=== PATIENT | female | born 1975 | race Caucasian/White ===

== ENCOUNTER → 2018-05-29 13:20 | Outpatient (CLI) | payer OTHER, SELFPAY ==
--- NOTE | 2018-05-29 13:24 | DI.RAD.S_ITS ---
PROCEDURE: XR LUMBAR SPINE MIN 4V INDICATIONS: POST LAMINECTOMY W/ RT L5 RADICULAR TECHNIQUE: 5 views of the lumbar spine were acquired. COMPARISON: None. FINDINGS: Bones: No fracture or focal osseous destruction is seen. There is moderate to severe narrowing of the L4-L5 and L5-S1 disc spaces. Diffuse facet arthropathy. Postsurgical change related to right L5 laminotomy. Soft tissues: Overlying bowel gas pattern is normal. No suspicious soft tissue calcifications. Oblique images: No pars defects. IMPRESSION: Moderate to severe L4-L5 and L5-S1 disc degeneration. Diffuse facet arthropathy. Dictated by: Efrain Juarez M.D. on 05/29/2018 at 14:15 Approved by: Efrain Juarez M.D. on 05/29/2018 at 14:17
== END ==
PROVIDERS: PCP Family Medicine; Visit Provider Physical Medicine & Rehabilitation
DX: M51.16 Intervertebral disc disorders with radiculopathy, lumbar region (principal); M51.17 Intervertebral disc disorders with radiculopathy, lumbosacral region; M47.26 Other spondylosis with radiculopathy, lumbar region; M96.1 Postlaminectomy syndrome, not elsewhere classified
CPT/HCPCS: 72110

== ENCOUNTER → 2018-06-10 18:08 | Outpatient (CLI) | payer OTHER, SELFPAY ==
--- NOTE | 2018-06-10 18:17 | DI.MRI.S_ITS ---
PROCEDURE: MR LUMBAR SPINE WO CON INDICATIONS: RADICULOPATHY, LUMBOSACRAL REGION TECHNIQUE: Noncontrast sagittal T1 spin echo and T2 fast echo, sagittal STIR, axial T1 and T2 fast spin echo through the lumbar spine. In cases with scoliosis, additional coronal T2 fast spin echo may be performed. COMPARISON: [facility], MR, LUMBAR SPINE W&W/O CONTRAST, 07/29/2013, 8:55. [facility], CR, XR LUMBAR SPINE MIN 4V, 05/29/2018, 13:15. FINDINGS: Image quality: Excellent. Alignment and Curvature: There is mild grade 1 retrolisthesis of L4 on L5 and L5 on S1. Minimal focal kyphosis at L4-L5 is present. Bone Marrow: Marrow is of normal overall signal. No acute vertebral body compression fractures. There is mild reactive signal within the endplates adjacent to the L4-L5 and L5-S1 intervertebral discs, which is slightly increased. Right L4-L5 and L5-S1 hemilaminotomy has been performed. Spinal Cord: Conus medullaris terminates at the mid L1 level. Visualized cord demonstrates normal signal and size. Paraspinous Soft Tissues: No paravertebral masses. Circumaortic left renal vein. L1-L2: Normal appearance. L2-L3: Normal appearance. L3-L4: Mild bilateral facet hypertrophy. No significant canal, nor foraminal stenosis. No change. L4-L5: Moderate disc height loss and desiccation. Mild diffuse disc bulge with small superimposed broad-based left posterolateral protrusion. Mild bilateral facet hypertrophy. Mild canal stenosis. Mild bilateral foraminal stenosis. No change. L5-S1: Mild disc height loss and desiccation. Mild diffuse disc bulge. Mild bilateral facet hypertrophy. There is abutment of the right S1 nerve root within the lateral recess, as before. There is mild canal stenosis, and mild bilateral foraminal stenosis, as before. IMPRESSION: 1. Multilevel degenerative disc and facet disease. 2. Postsurgical sequelae at L4-L5 and L5-S1. 3. Mild multilevel canal and foraminal stenoses. 4. No change in abutment of the right S1 nerve root within the lateral recess at L5-S1. Recommend correlation with clinical symptoms to ascertain relevance of this finding. Dictated by: Dada Diamond M.D. on 06/11/2018 at 9:19 Approved by: Dada Diamond M.D. on 06/11/2018 at 9:25
== END ==
PROVIDERS: Family Provider Family Medicine; PCP Family Medicine; Visit Provider Physical Medicine & Rehabilitation
DX: M51.16 Intervertebral disc disorders with radiculopathy, lumbar region (principal); M51.17 Intervertebral disc disorders with radiculopathy, lumbosacral region; M48.061 Spinal stenosis, lumbar region without neurogenic claudication; M48.07 Spinal stenosis, lumbosacral region; M96.1 Postlaminectomy syndrome, not elsewhere classified
CPT/HCPCS: 72148

== ENCOUNTER 2018-08-19 13:33 | Outpatient (CLI) | payer OTHER, SELFPAY ==
[2018-08-19] VITALS (9 sets, daily range): BP systolic 112–153; BP diastolic 45–85; PULSE 66–79; RESP 16–20; TEMP 36.3; O2SAT 96–100
--- NOTE | 2018-08-19 13:35 | DI.RAD.S_ITS ---
PROCEDURE: PAIN L INTERLAMINAR/CAUDAL INJ INDICATIONS: RADICULOPATHY FINDINGS: Fluoroscopic spot filming was performed to verify placement of spinal needles at the L5-S1 level(s), as labeled on the films. Appropriate location(s) of the needle tip(s) was confirmed by injection of iodinated contrast. Dictated by: Efrain Juarez M.D. on 08/19/2018 at 15:44 Approved by: Efrain Juarez M.D. on 08/19/2018 at 15:45
[2018-08-19] MEDS: MIDAZOLAM 5 MG/5 ML VIAL IV (14:41)
[2018-08-19] MEDS: IOPAMIDOL 15 ML VIAL 3 ML INJ (14:46)
[2018-08-19] MEDS: DEXAMETHASONE 10 MG/ML VIAL 20 MG INJ (14:46)
[2018-08-19] MEDS: BUPIVACAINE 0.25% (PF) VIAL 2 ML INJ (14:46)
[2018-08-19] MEDS: methylPREDNISolone acetate 80 MG/ML VIAL INJ (14:46)
--- NOTE | 2018-08-19 14:52 | PC.NURSE ---
ASSISTING PT OFF TABLE AND TRANSPORTING IN WC TO POST PROC AREA IN STABLE CONDITION
--- NOTE | 2018-08-19 14:56 | P.PCN_ITS ---
Procedures Date/Time Date of procedure: 08/19/18 Time of procedure: 14:55 General Procedure description: PROVIDER: Niraj Denny DO Operative Note PREOP DIAGNOSIS 1. HNP WITH RADICULAR FEATURES, 2. MULTILEVEL CENTRAL STENOSIS, POST OP DIAGNOSIS 1. HNP WITH RADICULAR FEATURES, 2. MULTILEVEL CENTRAL STENOSIS, PROCEDURES 1. FLUORSCOPICALLY GUIDED CONTRAST CONTROLLED INTERLAMINAR EPIDURAL STEROID INJECTION - L5/S1 PHYSICIAN: Niraj Denny DO INDICATIONS Emily is referred by Dr. Watkins for treatment of Bilateral Foraminal Stenosis R>L LE symptoms. FINDINGS Multilevel Central Spinal Stenosis with Nerve Root Compression DESCRIPTION OF PROCEDURE Fluoroscopically guided, contrast-controlled L5/S1 translaminar epidural steroid injection. Following denial of allergy and review of potential side effects and complications, including, but not necessarily limited to, infection, allergic reaction, local tissue breakdown, temporary as well as permanent nerve injury, paralysis, stroke and possible , the patient indicated that the patient understood and agreed to proceed. An informed consent document was signed by the patient, witnessed by a nurse, and placed in the patient's chart. Additionally, other treatment options including modalities, medications, and physical therapy were reviewed with the patient. After review of previous anaesthesic history and IV conscious sedation the patient was deemed safe to proceed with todays procedure with IV conscious sedation as ASA class II designation. Safety time-out was performed to confirm patient ID, procedure to be performed and site of procedure. IV sedation was accomplished with a combination of 5mg of Versed and 50mcg of Fentanyl administered by the RN after DO order, titrated to patient comfort during the course of the procedure while the patient remained responsive to all verbal commands. In the prone position, following sterile prep and drape of the lumbar region, the L5/S1 translaminar space was identified fluoroscopically. The skin was anesthetized via a 25-gauge, 1.5-inch needle with 1% lidocaine solution. At this point, a 22-gauge short bevel spinal needle was atraumatically introduced and advanced under fluoroscopic guidance into the region of the L5/S1 translaminar space. Depth was confirmed on lateral view. Radiological data, including multiple fluoroscopic views of the lumbar spine, reveal a spinal needle at the L5/S1 translaminar space. Lateral views then show placement of the needle in the epidural space. Subsequent views show contrast material flowing superiorly and inferiorly in the epidural space. No vascular or intrathecal uptake is observed. At this point, using loss of resistance technique with saline and air, the epidural space was entered. This was confirmed following negative aspiration with injection of approximately 1.5 cc of Isovue 200, showing excellent epidural flow without vascular or intrathecal uptake. At this point, 1 cc of 1 % lidocaine solution combined with 3 cc or 20mg of dexamethasone and 80mg Depo medrol was injected without incident. The patent tolerated the procedure without signs of symptoms of complications prior to transfer to the recovery area for further monitoring. The patient was then transferred to the recovery area where they were observed for an appropriate period of time after the injection. The patient reported a VAS score of 6 prior to the procedure and a post-procedure VAS of 0. Total Fluoroscopy Time: 11.8 seconds Total Conscious Sedation Time: 24min POST OP INSTRUCTIONS The patient was provided a Pain Log to continue to record their response to the target-specific procedure prior to follow-up visit with their referring physician. Additionally, specific post-injection care instructions and a contact number to our office were provided if concerns arise regarding possible complications associated with the procedure are suspected. Niraj Denny, Complications: none
--- NOTE | 2018-08-19 15:16 | PC.NURSE ---
Pt returned via wheelchair from procedure. Able to move from w/c to chair on own with standby assist. Resumed monitoring from Shaunna DE LEON.
--- NOTE | 2018-08-19 15:26 | PC.NURSE ---
changed bp cuff from upper left arm to lower left arm and it decreased pain with each measurement and bp's decreased.
== END 2018-08-19 15:29 ==
LOC: RAD 13:34
PROVIDERS: PCP Family Medicine; Visit Provider Physical Medicine & Rehabilitation
DX: M51.17 Intervertebral disc disorders with radiculopathy, lumbosacral region (principal); M48.07 Spinal stenosis, lumbosacral region; M96.1 Postlaminectomy syndrome, not elsewhere classified
CPT/HCPCS: 62323; 99152; J1040; J1100; J2250

== ENCOUNTER 2018-10-06 08:13 | Outpatient (CLI) | payer OTHER, SELFPAY ==
[2018-10-06] VITALS (8 sets, daily range): BP systolic 114–125; BP diastolic 56–84; PULSE 65–83; RESP 16–18; TEMP 37.3; O2SAT 89–98
--- NOTE | 2018-10-06 08:16 | DI.RAD.S_ITS ---
PROCEDURE: PAIN L/S TRANSFORAMINAL INJECT INDICATIONS: Right footdrop status post laminectomy FINDINGS: Fluoroscopic spot filming was performed to verify placement of spinal needles at the L4-L5 level(s), as labeled on the films. Appropriate location(s) of the needle tip(s) was confirmed by injection of iodinated contrast. IMPRESSION: Fluoroscopy for pain management. Dictated by: Lupe Gaytan M.D. on 10/06/2018 at 11:22 Approved by: Lupe Gaytan M.D. on 10/06/2018 at 11:22
--- NOTE | 2018-10-06 09:29 | P.PCN_ITS ---
Procedures Date/Time Date of procedure: 10/06/18 Time of procedure: 09:26 General Procedure description: PREOP DIAGNOSIS 1. FORMAINAL STENOSIS WITH LE SYMPTOMS POST OP DIAGNOSIS 1. FORMAINAL STENOSIS WITH LE SYMPTOMS PROCEDURES 1. FLUOROSCOPICALLY GUIDED CONTRAST CONTROLLED TRANSFORAMINAL EPIDURAL STEROID INJECTION - RIGHT L4/5 TFESI PHYSICIAN: Niraj Denny DO INDICATIONS: Emily is referred by for treatment of Foraminal Stenosis with Right LE Symptoms FINDINGS Foraminal Nerve Root Compression secondary to disc disease and facet hypertrophy DESCRIPTION OF PROCEDURE: Following denial of allergy and review of potential side effects and complications, including, but not necessarily limited to, infection, allergic reaction, local tissue breakdown, stroke, temporary or permanent nerve injury, paralysis, and possible , the patient indicated that the patient understood and agreed to proceed. An informed consent document was signed by the patient, witnessed by a nurse, and placed in the patient's chart. Additionally, other treatment options including medications, modalities, and physical therapy were reviewed with the patient. After review of previous anaesthesic history and IV conscious sedation the patient was deemed safe to proceed with todays procedure with IV conscious sedation as ASA class II designation. Safety time-out was performed to confirm patient ID, procedure to be performed and site of procedure. IV sedation was accomplished with a combination of 3mg of Versed and 50mcg of Fentanyl was administered by the RN after DO order, titrated to patient comfort during the course of the procedure while the patient remained responsive to all verbal commands In the prone position following sterile prep and drape of the lumbar region, the Right L4/5 posterior neuroforamen was identified fluoroscopically. The skin was anesthetized via a 25-gauge 1.5-inch needle with 1% lidocaine solution. At this point, a 22-gauge 5-inch spinal needle was atraumatically introduced and advance d under fluoroscopic guidance through the posterior Right L4/5 neuroforamen to approximately the anterior aspect of the canal. Depth was confirmed on lateral view. Following negative aspiration, injection of approximately 1.5 cc of Isovue 200 under live fluoroscopy in the AP view confirmed excellent flow along the nerve root, into the epidural space without vascular or intrathecal uptake observed Radiological data, including multiple fluoroscopic views of the lumbosacral spine, reveal a spinal needle at the right L4/5 posterior neuroforamen. Subsequent views show flow of contrast material flowing superiorly and inferiorly along the nerve root confirming epidural flow. Subsequently, a test dose of 1.5 cc of 1% lidocaine solution was administered and patient was observed for two minutes for signs or symptoms of complications, including abdominal pain, shortness of breath, bilateral upper or lower extremity weakness, nausea and vomiting, prior to steroid injection. At this point, a total of 2cc or 20mg of dexamethasone was injected without incident. The procedure tolerated the procedure well without signs or symptoms of complications prior to transfer to the recovery area continued monitoring without incident.The patient was then transferred to the recovery area where they were observed for an appropriate time after the injection. The patient reported a VAS score of 7 prior to the procedure and a post- procedure VAS of 0. Total Fluoroscopy Time: 20.9 seconds Total Conscious Sedation Time: 24min POST OP INSTRUCTIONS The patient was provided a Pain Log to continue to record their response to the target-specific procedure prior to follow-up visit with their referring physician. Additionally, specific post-injection care instructions and a contact number to our office were provided if concerns arise regarding possible complications associated with the procedure are suspected. Niraj Denny DO Complications: none
[2018-10-06] MEDS: MIDAZOLAM 5 MG/5 ML VIAL IV (09:34)
[2018-10-06] MEDS: BUPIVACAINE 0.25% (PF) VIAL 2 ML INJ (09:42)
[2018-10-06] MEDS: DEXAMETHASONE 10 MG/ML VIAL 20 MG INJ (09:43)
[2018-10-06] MEDS: IOPAMIDOL 15 ML VIAL 3 ML INJ (09:43)
--- NOTE | 2018-10-06 09:47 | PC.NURSE ---
ASSISTING PT OFF Table and tranpsorting to post proc area in stable condition
--- NOTE | 2018-10-06 10:00 | PC.NURSE ---
pt returned from procedure awake and alert able to move from w/c to chair with minimal assist. Resumed monitoring from Shaunna DE LEON.
--- NOTE | 2018-10-07 12:49 | PC.NURSE ---
FOLLOW UP CALL MADE, PT STATES DECREASED PAIN BUT NO CHANGE IN NUMBNESS. EXPLAINED THAT FULL RESULTS CAN TAKE MULTIPLE DAYS TO BE NOTED. PT DENIES OTHER QUESTIONS/CONCERNS.
== END 2018-10-06 10:15 ==
LOC: RAD 08:14
PROVIDERS: PCP Family Medicine; Visit Provider Physical Medicine & Rehabilitation
DX: M48.061 Spinal stenosis, lumbar region without neurogenic claudication (principal); M51.16 Intervertebral disc disorders with radiculopathy, lumbar region; M96.1 Postlaminectomy syndrome, not elsewhere classified; M21.371 Foot drop, right foot
CPT/HCPCS: 64483; 99152; J1100; J2250; J3010

== ENCOUNTER 2019-01-28 12:32 | Outpatient (CLI) | payer OTHER, SELFPAY ==
[2019-01-28] VITALS (9 sets, daily range): BP systolic 109–123; BP diastolic 54–73; PULSE 64–78; RESP 16–18; TEMP 36.7; O2SAT 95–99
--- NOTE | 2019-01-28 12:32 | DI.RAD.S_ITS ---
PROCEDURE: PAIN L/S FACET INJ/BLK 1ST SHAUN COMPARISON: None. INDICATIONS: INTERVERTEBRAL DISC DISPLACEMENT FINDINGS: 6 intraoperative fluoroscopy images demonstrate placement of needles at L4-L5 and L5-S1 facet joints bilaterally under fluoroscopy guidance. IMPRESSION: Fluoroscopy for pain management. Dictated by: Lupe Gaytan M.D. on 01/28/2019 at 15:37 Approved by: Lupe Gaytan M.D. on 01/28/2019 at 15:38
[2019-01-28] MEDS: fentaNYL 100 MCG/2 ML INJ 50 MCG IV (13:55)
[2019-01-28] MEDS: MIDAZOLAM 5 MG/5 ML VIAL IV (13:55)
[2019-01-28] MEDS: IOPAMIDOL 15 ML VIAL 3 ML INJ (13:57)
[2019-01-28] MEDS: LIDOCAINE 1% 20 ML INJ 10 ML INJ (13:58)
[2019-01-28] MEDS: BUPIVACAINE 0.5% (PF) VIAL 2 ML INJ (13:58)
[2019-01-28] MEDS: BETAMETHASONE 30 MG/5 ML MDV 12 MG INJ (13:58)
--- NOTE | 2019-01-28 14:11 | PC.NURSE ---
Pt tolerated procedure well. Able to get off table and into wheelchair with standby assist. Transferred pt awake and alert to pre procedure room for continued monitoring with Shaunna DE LEON.
--- NOTE | 2019-01-28 14:16 | P.PCN_ITS ---
Procedures Date/Time Date of procedure: 01/28/19 Time of procedure: 14:13 General Procedure description: PREOP DIAGNOSIS 1. FACET ARTHROPATHY 2. AXIAL LBP 3. MULTILEVEL DDD POST OP DIAGNOSIS 1. FACET ARTHROPATHY 2. AXIAL LBP 3. MULTILEVEL DDD PROCEDURES 1. FLUORSCOPICALLY GUIDED CONTRAST CONTROLLED FACET JOINT INJECTIONS BILATERAL L4/5, L5/S1 PHYSICIAN: Niraj Denny, DO INDICATIONS Emily is referred by Dr. Starks for treatment of Axial LBP FINDINGS Multilevel Facet Arthropathy with Clinically significant axial LBP DESCRIPTION OF PROCEDURE Fluoroscopically guided, contrast-controlled bilateral L4/5, L5/S1 facet joint injections. Following review of allergy and review of potential side effects and complications, including, but not necessarily limited to, infection, allergic reaction, local tissue breakdown, stroke, temporary or permanent nerve injury, paralysis, and possible , the patient indicated that the patient understood and agreed to proceed. An informed consent document was signed by the patient, witnessed by a nurse, and placed in the patient's chart. Additionally, other treatment options including medications, modalities, and physical therapy were reviewed with the patient. After review of previous anaesthesic history and IV conscious sedation the patient was deemed safe to proceed with todays procedure with IV conscious sedation as ASA class II designation. Safety time-out was performed to confirm patient ID, procedure to be performed and site of procedure. IV sedation was accomplished with a combination of 4mg of Versed and 50mcg of Fentanyl was administered by the RN after DO order, titrated to patient comfort during the course of the procedure while the patient remained responsive to all verbal commands In the prone position, following sterile prep and drape of the lumbar region, the posterior aspect of the L4/5, L5/S1 facet joints were identified fluoroscopically. The skin was anesthetized via a 25-gauge 1.5-inch needle with 1% lidocaine solution into the corresponding facet joints. At this point, a 22- gauge 5-inch spinal needle was atraumatically introduced and advanced under fluoroscopic guidance into the corresponding facet joints. Following negative aspiration, injections of approximately 0.2-cc of Isovue 200 confirmed interarticular placement without vascular uptake. The identical procedure was then performed at the L4/5, L5/S1 facet joints on the left. Radiological data, including multiple fluoroscopic views of the lumbosacral spine, reveal a spinal needle at the L4/5, L5/S1 facet joints bilaterally. Subsequent views show flow of contrast material both superiorly and inferiorly within the joint space without vascular or intrathecal uptake. At this point, a total of 0.5 cc including a mixture of 0.25cc Marcaine and 0.25cc betamethasone was injected without complication into each of the corresponding facet joints. The patient tolerated the procedure well without signs or symptoms of complications prior to transfer to the recovery area continued monitoring without incident. The patient was then transferred to the recovery area where they were observed for an appropriate period of time after the injection. The patient reported a VAS score of 7 prior to the procedure and a post- procedure VAS of 0. Total Fluoroscopy Time: 20.3 seconds Total Conscious Sedation Time: 24min POST OP INSTRUCTIONS The patient was provided a Pain Log to continue to record their response to the target-specific procedure prior to follow-up visit with their referring physician. Additionally, specific post-injection care instructions and a contact number to our office were provided if concerns arise regarding possible complications associated with the procedure are suspected. Niraj Denny DO Complications: none
== END 2019-01-28 14:40 | disposition home or self-care (01) ==
LOC: RAD 12:32
PROVIDERS: PCP Family Medicine; Visit Provider Physical Medicine & Rehabilitation
DX: M47.816 Spondylosis without myelopathy or radiculopathy, lumbar region (principal); M47.817 Spondylosis without myelopathy or radiculopathy, lumbosacral region; M54.5 Low back pain; M51.36 Other intervertebral disc degeneration, lumbar region; M51.37 Other intervertebral disc degeneration, lumbosacral region
CPT/HCPCS: 64493; 64494; 99152; J0702; J2250; J3010